=== PATIENT | female | born 1975 | race Caucasian/White ===

== ENCOUNTER 2018-11-01 08:33 | Emergency (ER) | payer OTHER ==
[~2018-11-01] VITALS: Ht 177.8 cm; Wt 149.0 kg
[2018-11-01] MEDS ORDERED: MORPHINE SULFATE 4 MG/ML CPJ (NOT FOR IM USE) IV STA (10:27)
[2018-11-01] MEDS ORDERED: SODIUM CHLORIDE 0.9% 1,000 ML IV ONE (10:27)
[2018-11-01] MEDS ORDERED: ONDANSETRON HCL 4MG/2ML INJ IV STA (10:27)
[2018-11-01 11:06] LABS: CLARITY URINE CLOUDY (CLEAR); COLOR URINE YELLOW (YELLOW); KETONES URINE NEGATIVE (NEGATIVE); LEUKOCYTE ESTERASE URINE TRACE (NEGATIVE); NITRITE URINE NEGATIVE (NEGATIVE); OCCULT BLOOD URINE NEGATIVE (NEGATIVE); PH URINE 5.5 (4.5-8.0); PROTEIN URINE NEGATIVE (NEGATIVE); UROBILINOGEN URINE 0.2 E.U./dL (0.2-1.0)
[2018-11-01 11:48] LABS: BASOPHILS % 0.6 % (0.0-2.0); EOSINOPHILS % 1.3 % (0.0-5.0); HEMATOCRIT. 36.6 % (36.0-48.0); LYMPHOCYTES % 27.5 % (20.0-50.0); MEAN CORPUSCULAR HEMOGLOBIN 28.2 pg (28.0-32.0); MEAN CORPUSCULAR VOLUME 86.3 fL (81.0-99.0); MEAN PLATELET VOLUME 8.8 fl (7.4-10.4); NEUTROPHILS % 65.6 % (40.0-76.0); PLATELET 248 x1000/uL (130-400); RED BLOOD CELL COUNT 4.24 mill/uL (4.2-5.4); RED CELL DISTRIBUTION WIDTH 13.7 % (11.6-14.6)
[2018-11-01 11:52] LABS: INR 0.9; PROTHROMBIN TIME 9.5 sec (9.1-11.1)
[2018-11-01 11:53] LABS: CHLORIDE 109 mEq/L (98-107)
[2018-11-01] MEDS ORDERED: MORPHINE SULFATE 10 MG/ML CPJ IV STA (12:07)
[2018-11-01 12:13] LABS: HCG SCREEN NEGATIVE
[2018-11-01] MEDS ORDERED: DIPHENHYDRAMINE 50MG/ML VIAL IV ONE (13:00)
[2018-11-01] MEDS ORDERED: PROCHLORPERAZINE 10MG/2ML VIAL IV ONE (13:00)
[2018-11-01 15:15] VITALS: BP 147/93
== END 2018-11-01 15:20 | disposition home or self-care (01) ==
LOC: ER 08:33
DX: R11.2 Nausea with vomiting, unspecified (principal); R51 Headache; R10.0 Acute abdomen; F17.210 Nicotine dependence, cigarettes, uncomplicated; Z71.6 Tobacco abuse counseling
CPT/HCPCS: 36415; 80053; 81003; 81025; 83690; 84703; 85025; 85610; 87804; 96361; 96374; 96375; 99283; 99406; J0780; J1200; J2270; J2405; J7030